=== PATIENT | male | born 1975 | race Caucasian/White ===

== ENCOUNTER 2017-05-05 00:40 | Emergency (ER) | payer BC ==
[~2017-05-05] VITALS: Ht 172.7 cm; Wt 80.1 kg
[2017-05-05 00:49] VITALS: BP 116/60
== END 2017-05-05 01:21 | disposition home or self-care (01) ==
LOC: ED 01:05
DX: S39.012A Strain of muscle, fascia and tendon of lower back, initial encounter (principal); M54.6 Pain in thoracic spine; G89.29 Other chronic pain; X58.XXXA Exposure to other specified factors, initial encounter; Y93.89 Activity, other specified; Y99.8 Other external cause status; Y92.89 Other specified places as the place of occurrence of the external cause
CPT/HCPCS: 99283

== ENCOUNTER 2017-10-18 22:58 | Emergency (ER) | payer BC ==
[~2017-10-18] VITALS: Ht 180.3 cm; Wt 78.3 kg
[2017-10-18 23:01] VITALS: BP 117/76
== END 2017-10-18 23:37 | disposition left against medical advice (07) ==
LOC: ED 23:30
DX: S41.111A Laceration without foreign body of right upper arm, initial encounter (principal); Z53.21 Procedure and treatment not carried out due to patient leaving prior to being seen by health care provider; X58.XXXA Exposure to other specified factors, initial encounter; Y93.89 Activity, other specified; Y99.8 Other external cause status; Y92.89 Other specified places as the place of occurrence of the external cause

== ENCOUNTER 2018-03-29 16:49 | Emergency (ER) | payer BC ==
[2018-03-29] MEDS ORDERED: HYDROmorphone 2 MG/ML, 1ML ONE (18:06)
[2018-03-29] MEDS ORDERED: KETOROLAC 30 MG/1 ML ONE (18:07)
[2018-03-29] MEDS ORDERED: HYDROmorphone 1 MG/ML, 1ML IM ONE (18:30)
[2018-03-29] MEDS ORDERED: KETOROLAC 30 MG/1 ML IM ONE (18:30)
[2018-03-29 18:54] LABS: MICROSCOPIC AUTO
[2018-03-29 18:59] LABS: CULTURE INDICATED? NO
[2018-03-29 19:58] VITALS: BP 110/72
== END 2018-03-29 20:00 | disposition home or self-care (01) ==
LOC: ED 18:58
DX: I86.1 Scrotal varices (principal); N50.812 Left testicular pain
CPT/HCPCS: 76870; 81001; 93975; 96372; 99285; J1170; J1885